=== PATIENT | male | born 1950 | race Hispanic/Latino ===

== ENCOUNTER 2023-04-01 22:02 | Emergency (ER) | payer OTHER ==
[~2023-04-01] VITALS: Ht 180.3 cm; Wt 84.4 kg
[2023-04-02] MEDS ORDERED: OCTYL 2-CYANOACRYLATE 1 EACH TP SCH
[2023-04-02] MEDS ORDERED: AMOX1TAB16 PO (02:04)
[2023-04-02] MEDS ORDERED: IBUP-1493 PO (02:04)
[2023-04-02 02:56] VITALS: BP 136/85; PULSE 81; RESP 14; O2SAT 99
== END 2023-04-02 03:06 | disposition home or self-care (01) ==
LOC: EDH 22:02
DX: S02.32XA Fracture of orbital floor, left side, initial encounter for closed fracture (principal); S01.81XA Laceration without foreign body of other part of head, initial encounter; E11.9 Type 2 diabetes mellitus without complications; E78.00 Pure hypercholesterolemia, unspecified; F32.A Depression, unspecified; I10 Essential (primary) hypertension; Y04.8XXA Assault by other bodily force, initial encounter; Y93.89 Activity, other specified; Y92.89 Other specified places as the place of occurrence of the external cause; Y99.8 Other external cause status
CPT/HCPCS: 70450; 70486; 72125; 73130